=== PATIENT | female | born 1980 | race Caucasian/White ===

== ENCOUNTER 2025-09-01 12:48 | Emergency (ER) | payer OTHER, SELFPAY ==
[2025-09-01 12:58] VITALS: BP 124/70
[2025-09-01 13:48] LABS: Hematocrit 35.7 % (37.0-47.0); Hemoglobin 12.3 g/dL (12.0-16.0); Mean Corp Hgb Conc. 34.5 g/dL (33.0-37.0); Mean Corpuscular Volume 94.9 fL (81.0-99.0); Nucleated Red Blood Cells % 0 %; Platelet Count 197 10^3/uL (130-400); Red Cell Dist. Width 13.0 % (11.5-14.5)
[2025-09-01 14:02] LABS: HCG, Serum Qualitative Screen Negative
[2025-09-01 14:03] LABS: ALT (SGPT) 13 U/L (0-35); AST (SGOT) 20 U/L (14-36); Albumin 4.5 g/dl (3.5-5.0); Alkaline Phosphatase 63 U/L (38-126); Blood Urea Nitrogen 13 mg/dl (7-17); Calcium 9.3 mg/dl (8.4-10.2); Carbon Dioxide 26 mmol/L (22-30); Chloride 102 mmol/L (98-107); Glucose 105 mg/dl (70-99); Potassium 4.3 mmol/L (3.5-5.1); Sodium 134 mmol/L (135-145); Total Protein 7.0 g/dl (6.3-8.2); eGFR > 60.00
[2025-09-01 14:12] LABS: Troponin I 0.014 ng/ml
[2025-09-01 15:48] VITALS: BP 114/81
[2025-09-01 15:49] VITALS: BP 114/81
[2025-09-01 15:50] VITALS: BMI 26.1
[2025-09-01 16:00] VITALS: BP 111/85
--- NOTE | 2025-09-01 17:16 | ED.GENMED ---
History of Present Illness
General
Chief Complaint: Chest Pain
Time Seen by Provider: 09/01/25 15:33
History of Present Illness
History of Present Illness:
45-year-old female with history of lymphoma, undergoing radiation therapy, presenting for 3 days of chest tightness. Patient notes symptoms at the left chest wall, worse with deep inspiration. Pain radiates to her back and does note some dyspnea.
Denies any known cardiac history. Patient recently started radiation, so is unsure if she is reacting to the radiation. Denies cough or fever. Denies any history of blood clots. Denies additional acute medical complaints
Phy Exam
Physical Exam
Physical Exam:
General: Well-appearing, no clinical signs of dehydration, nontoxic and in no acute distress
HEENT: protecting airway
Neck: appears supple
CV: Normal heart rate, regular rhythm
Resp: No accessory muscle use, no increased work of breathing, lungs clear to auscultation bilaterally
Abd: Soft and non-distended, no tenderness to palpation
Extremities: No deformities, no swelling
Neuro: alert, no focal neurologic deficit
: deferred
Rectal: deferred
Psych: Normal affect
Skin: Intact
Scores
Heart Score for Chest Pain Patients
STEMI patient?: No
History: Slightly or Non-Suspicious
ECG: Normal
Age: >45 - <65 years
Risk Factors: 1 or 2 Risk Factors
Troponin: </= Normal Limit
Heart Score for Chest Pain Patients: 2
Heart Score Risk: 2.5% MACE over next 6 weeks
Course
Orders/Labs/Results
Orders:
Orders
09/01/25 12:57
Electrocardiogram (*1) Urgent
Reason for Study: Chest Pain
09/01/25 12:58
EKG- Treatment ONCE
Test Result ONCE
09/01/25 13:30
Complete Blood Count/With Diff Urgent
Comprehensive Metabolic Panel Urgent
HCG, Serum Qualitative Screen Urgent
Troponin I Urgent
09/01/25 16:25
CT Chest PE Study Urgent
Comment:
Reason For Exam: L-chest pain, hx lymphoma
09/01/25 17:14
Acetaminophen [Tylenol] 650 mg PO NOW STA
Ondansetron Injectable [Zofran] 4 mg IV NOW STA
09/01/25 18:46
Ketorolac [Toradol] 15 mg IV NOW STA
Abnormal Lab Results
09/01/25
13:30
RBC 3.76 L 10^6/uL
(4.20-5.40)
Hct 35.7 L %
(37.0-47.0)
MCH 32.7 H pg
(27.0-31.0)
MPV 11.2 H fL
(7.4-10.4)
Absolute Lymphs (auto) 0.5 L 10^3/uL
(1.2-3.4)
Neutrophils % 79.3 H %
(42.2-75.2)
Lymphocytes % 8.2 L %
(20.5-51.1)
Monocytes % 9.4 H %
(1.7-9.3)
Sodium 134 L mmol/L
(135-145)
Glucose 105 H mg/dl
(70-99)
09/01/25 13:30
09/01/25 13:30
Vital Signs
Initial and Last Documented VS:
Initial Vital Signs
Temp Pulse Resp BP Pulse Ox
98.2 F 76 16 124/70 98
09/01/25 12:58 09/01/25 12:58 09/01/25 12:58 09/01/25 12:58 09/01/25 12:58
Last Documented Vital Signs
Temp Pulse Resp BP Pulse Ox
98.1 F 74 16 119/78 100
09/01/25 15:49 09/01/25 19:07 09/01/25 19:07 09/01/25 17:17 09/01/25 19:07
MDM/Problems Addressed
MDM/Problems Addressed:
45-year-old female with history of lymphoma presenting for left-sided chest discomfort. Vital signs on arrival are normal.
On exam patient resting comfortably, no acute distress. Reassuring EKG and physical examination. No significant cardiac risk factors with lower suspicion for ACS. Patient afebrile, denies cough. Lower suspicion for infection. No signs of volume
overload without concern for CHF. However patient notes that pain is worse with deep inspiration, radiates to her back. In the setting of malignancy, cannot safely rule out PE. That is reasonable obtain CT of the chest. Labs otherwise
unremarkable
CT without evidence of PE or acute abnormality. At this time without concern for infection, PE, cardiac pathology. Feel stable for discharge with continued outpatient management with oncology. Return precautions discussed. Patient verbalized
understanding
*Pulse Oximetry
SaO2: 100
Oxygen Mode of Delivery: Room air
Patient hypoxic: no
*EKG
Interpreted by ED Provider?: Yes
EKG Intrepretation Date: 09/01/25
EKG Intrepretation Time: 17:18
Interpretation: normal
Heart Rate: 68
Rate: normal
Rhythm: sinus arrhythmia
[place]: normal axis
Interval: normal interval
QRS Pattern: normal QRS
Ischemia: no ischemia
*Critical Care Note
Total Time (30-74mins, 75-104mins- exclusive of procedures): Not Applicable
ED Attending Note
-
Portions of this chart may have been created with voice recognition software.� Occasional wrong word or��sound alike� substitutions may have occurred due to the inherent limitations of voice recognition software.
Discharge Plan
Departure
Patient Disposition: Home (Routine Discharge)
Date of Disposition: 09/01/25
Time of Disposition: 18:35
Patient with high blood pressure during this ER visit?: No
Condition: Good
Discharge Problem:
Chest wall pain
Instructions: Chest pain
Prescriptions:
New
sucralfate [Carafate] 1 gram tablet
1 g PO BID 7 Days Qty: 14 0RF
Referrals:
Alex Martinez MD [Family Provider, Hematology / Oncology]
Activity Restrictions/Additional Instructions:
You were seen in the emergency department for chest discomfort
You were found to have reassuring laboratory analysis, vital signs, CT imaging of your chest. We recommend follow-up with your oncologist and your radiation oncology
Please follow-up closely with your primary care physician.
Return to the emergency department for any worsening of your symptoms, or any development of chest pain, difficulty breathing, abdominal pain with persistent vomiting and inability to tolerate food or liquid by mouth (concern for dehydration),
weakness, headache or confusion, fever greater than 100.4, or any additional symptoms that are concerning to you.
Thank you for choosing [facility].
Interventions
Interventions:
*Risk Screen - Suicide Last Done: 09/01/25 13:03
*General Assessment Last Done: 09/01/25 15:45
*Neglect/Abuse Screening Last Done: 09/01/25 13:03
*ED- Fall Risk Assessment Last Done: 09/01/25 15:45
*ED COVID-19 Vaccine History Last Done: 09/01/25 15:45
*ED Influenza Vaccine History Last Done: 09/01/25 15:45
*Nursing Disposition Last Done: 09/01/25 19:07
ED- Cardiac Assessment Last Done: 09/01/25 18:03
Discharge Date and Time
Discharge Date/Time: 09/01/25 19:07
Print Language: CUBAN
[2025-09-01 17:17] VITALS: BP 119/78
[2025-09-01] MEDS: TYLENOL 650 MG PO (17:21)
[2025-09-01] MEDS: ZOFRAN 4 MG IV (17:22)
[2025-09-01] MEDS: TORADOL 15 MG IV (19:00)
== END 2025-09-01 19:07 | disposition home or self-care (01) ==
LOC: EMR 12:48
PROVIDERS: Emergency Medicine; EMERGENCY PHYSICIAN Student in an Organized Health Care Education/Training Program; FAMILY PHYSICIAN Internal Medicine
DX: R07.89 Other chest pain (principal); R06.00 Dyspnea, unspecified; Z92.3 Personal history of irradiation; Z85.72 Personal history of non-Hodgkin lymphomas
CPT/HCPCS: 99284; 96374; 96375; 71275; 80053; 84484; 84703; 85025; 93005; Q9967